=== PATIENT | male | born 1975 | race Caucasian/White ===

== ENCOUNTER 2017-02-02 21:39 | Inpatient (IN) | payer BC ==
[2017-02-02 22:35] LABS: Hematocrit 45 % (42-52); Hemoglobin 15.9 g/dl (14.0-18.0); Mean Corpuscular HGB Conc 35 g/dl (31-36); Mean Corpuscular Hemoglobin 35 pg (27-31); Mean Corpuscular Volume 101 fL (80-94); Mean Platelet Volume 8 um3 (7.4-10.4); Red Blood Count 4.51 10^6/ul (4.0-5.4); Red Cell Distribution Width 13 % (10.5-15); White Blood Count 10.2 10^3/ul (3.5-10.8)
[2017-02-02 22:52] LABS: ALT 23 U/L (7-52); AST 19 U/L (13-39); Albumin 4.4 g/dL (3.2-5.2); Alkaline Phosphatase 74 U/L (34-104); Anion Gap 10 mmol/L (2-11); BUN/Creatinine Ratio 6.3 (8-20); Blood Urea Nitrogen 4 mg/dL (6-24); CO2 Carbon Dioxide 23 mmol/L (22-32); Calcium 9.3 mg/dL (8.6-10.3); Chloride 103 mmol/L (101-111); EGFR African American 179.1 (>60); EGFR Non-African American 139.2 (>60); Globulin 2.4 g/dL (2-4); Glucose 103 mg/dL (70-100); Potassium 3.7 mmol/L (3.5-5.0); Sodium 136 mmol/L (133-145); Total Protein 6.8 g/dL (6.4-8.9)
[2017-02-02 23:10] LABS: Acetaminophen < 15 mcg/mL; Alcohol 314 mg/dL (<10); Salicylate < 2.50 mg/dL (<30)
[2017-02-02 23:18] LABS: Urine Bilirubin Negative (Negative); Urine Glucose Negative (Negative); Urine Nitrite Negative (Negative)
[2017-02-02 23:21] LABS: TSH (Thyroid Stimulating Horm) 2.56 mcIU/mL (0.34-5.60)
--- NOTE | 2017-02-02 23:30 | ED ---
Thanh Kirkpatrick Matthew, scribed for Suraj Whitlock MD on 02/02/17 at 2330 . Psychiatric Complaint - HPI Summary HPI Summary: A 41 y/o male presents to the ED after a suicide attempt. The patient states that he attached a garden hose to the muffler of the his car and ran the hose into his car. He states that he wanted to take his life and he wishes his dad would not have found him. - History Of Current Complaint Chief Complaint: [facility]ental[facility] Time Seen by Provider: 02/02/17 22:25 Hx Obtained From: Patient Onset/Duration: Still Present Timing: Constant Severity Initially: Moderate Severity Currently: Moderate Character: Depressed Has Suicidal: Reports: Thoughts, With A Plan - Allergies/Home Medications Allergies/Adverse Reactions: Allergies Allergy/AdvReac Type Severity Reaction Status Date / Time No Known Allergies Allergy Verified 02/02/17 22:21 PMH/Surg Hx/FS Hx/Imm Hx Psychiatric History: Reports: Hx Suicide Attempt Infectious Disease History: No Infectious Disease History: Denies: Traveled Outside the [place] in Last 30 Days Review of Systems Constitutional: Negative Eyes: Negative ENT: Negative Cardiovascular: Negative Respiratory: Negative Gastrointestinal: Negative Genitourinary: Negative Musculoskeletal: Negative Skin: Negative Neurological: Negative Psychological: Other - Suicide attempt All Other Systems Reviewed And Are Negative: Yes Physical Exam Triage Information Reviewed: Yes Vital Signs On Initial Exam: Initial Vitals Temp Pulse Resp BP Pulse Ox 97.6 F 94 20 151/81 97 02/02/17 21:43 02/02/17 21:43 02/02/17 21:43 02/02/17 21:43 02/02/17 21:43 Vital Signs Reviewed: Yes Appearance: Positive: Well-Appearing, No Pain Distress Skin: Positive: Warm Head/Face: Positive: Normal Head/Face Inspection Eyes: Positive: JOHN ENT: Positive: Hearing grossly normal Neck: Positive: Supple Respiratory/Lung Sounds: Positive: Clear to Auscultation, Breath Sounds Present Cardiovascular: Positive: RRR Abdomen Description: Positive: Nontender, Soft Bowel Sounds: Positive: Present Musculoskeletal: Positive: Strength/ROM Intact Diagnostics - Vital Signs Vital Signs Temp Pulse Resp BP Pulse Ox 02/02/17 22:20 99.0 F 93 20 134/93 100 02/02/17 21:43 97.6 F 94 20 151/81 97 - Laboratory Lab Results: Lab Results 02/02/17 02/02/17 02/02/17 Range/Units 22:25 22:25 22:25 WBC 10.2 (3.5-10.8) 10^3/ul RBC 4.51 (4.0-5.4) 10^6/ul Hgb 15.9 (14.0-18.0) g/dl Hct 45 (42-52) % MCV 101 H (80-94) fL MCH 35 H (27-31) pg MCHC 35 (31-36) g/dl RDW 13 (10.5-15) % Plt Count 260 (150-450) 10^3/ul MPV 8 (7.4-10.4) um3 Neut % (Auto) 63.8 (38-83) % Lymph % (Auto) 26.9 (25-47) % [place] % (Auto) 6.5 (1-9) % Eos % (Auto) 2.4 (0-6) % Baso % (Auto) 0.4 (0-2) % Absolute Neuts (auto) 6.5 (1.5-7.7) 10^3/ul Absolute Lymphs (auto) 2.7 (1.0-4.8) 10^3/ul Absolute Monos (auto) 0.7 (0-0.8) 10^3/ul Absolute Eos (auto) 0.2 (0-0.6) 10^3/ul Absolute Basos (auto) 0 (0-0.2) 10^3/ul Absolute Nucleated RBC 0 10^3/ul Nucleated RBC % 0 Carbon Monoxide Screen 13.0 H (<3.5) % Sodium 136 (133-145) mmol/L Potassium 3.7 (3.5-5.0) mmol/L Chloride 103 (101-111) mmol/L Carbon Dioxide 23 (22-32) mmol/L Anion Gap 10 (2-11) mmol/L BUN 4 L (6-24) mg/dL Creatinine 0.64 L (0.67-1.17) mg/dL Est GFR ( Amer) 179.1 (>60) Est GFR (Non-Af Amer) 139.2 (>60) BUN/Creatinine Ratio 6.3 L (8-20) Glucose 103 H (70-100) mg/dL Calcium 9.3 (8.6-10.3) mg/dL Total Bilirubin 0.90 (0.2-1.0) mg/dL AST 19 (13-39) U/L ALT 23 (7-52) U/L Alkaline Phosphatase 74 (34-104) U/L Total Protein 6.8 (6.4-8.9) g/dL Albumin 4.4 (3.2-5.2) g/dL Globulin 2.4 (2-4) g/dL Albumin/Globulin Ratio 1.8 (1-3) TSH 2.56 (0.34-5.60) mcIU/mL Urine Color Urine Appearance Urine pH (5-9) Ur Specific [place] (1.010-1.030) Urine Protein (Negative) Urine Ketones (Negative) Urine Blood (Negative) Urine Nitrate (Negative) Urine Bilirubin (Negative) Urine Urobilinogen (Negative) Ur Leukocyte Esterase (Negative) Urine Glucose (Negative) Salicylates < 2.50 (<30) mg/dL Acetaminophen < 15 mcg/mL Serum Alcohol 314 H (<10) mg/dL 02/02/ Range/Units 23:05 WBC (3.5-10.8) 10^3/ul RBC (4.0-5.4) 10^6/ul Hgb (14.0-18.0) g/dl Hct (42-52) % MCV (80-94) fL MCH (27-31) pg MCHC (31-36) g/dl RDW (10.5-15) % Plt Count (150-450) 10^3/ul MPV (7.4-10.4) um3 Neut % (Auto) (38-83) % Lymph % (Auto) (25-47) % [place] % (Auto) (1-9) % Eos % (Auto) (0-6) % Baso % (Auto) (0-2) % Absolute Neuts (auto) (1.5-7.7) 10^3/ul Absolute Lymphs (auto) (1.0-4.8) 10^3/ul Absolute Monos (auto) (0-0.8) 10^3/ul Absolute Eos (auto) (0-0.6) 10^3/ul Absolute Basos (auto) (0-0.2) 10^3/ul Absolute Nucleated RBC 10^3/ul Nucleated RBC % Carbon Monoxide Screen (<3.5) % Sodium (133-145) mmol/L Potassium (3.5-5.0) mmol/L Chloride (101-111) mmol/L Carbon Dioxide (22-32) mmol/L Anion Gap (2-11) mmol/L BUN (6-24) mg/dL Creatinine (0.67-1.17) mg/dL Est GFR ( Amer) (>60) Est GFR (Non-Af Amer) (>60) BUN/Creatinine Ratio (8-20) Glucose (70-100) mg/dL Calcium (8.6-10.3) mg/dL Total Bilirubin (0.2-1.0) mg/dL AST (13-39) U/L ALT (7-52) U/L Alkaline Phosphatase (34-104) U/L Total Protein (6.4-8.9) g/dL Albumin (3.2-5.2) g/dL Globulin (2-4) g/dL Albumin/Globulin Ratio (1-3) TSH (0.34-5.60) mcIU/mL Urine Color Straw Urine Appearance Clear Urine pH 6.0 (5-9) Ur Specific [place] 1.001 L (1.010-1.030) Urine Protein Negative (Negative) Urine Ketones Negative (Negative) Urine Blood Negative (Negative) Urine Nitrate Negative (Negative) Urine Bilirubin Negative (Negative) Urine Urobilinogen Negative (Negative) Ur Leukocyte Esterase Negative (Negative) Urine Glucose Negative (Negative) Salicylates (<30) mg/dL Acetaminophen mcg/mL Serum Alcohol (<10) mg/dL Result Diagrams: 02/02/17 22:25 02/02/17 22:25 Lab Statement: Any lab studies that have been ordered have been reviewed, and results considered in the medical decision making process. Re-Evaluation - Re-Evaluation First Eval Change: Improved Course/Dx - Differential Dx/Clinical Impression Provider Diagnosis: Carbon monoxide poisoning, Suicide attempt by carbon monoxide poisoning - Physician Notifications Instructed by Provider To: Admit As Inpatient Discharge - Discharge Plan Condition: Fair Disposition: ADMITTED TO [facility] The documentation as recorded by the Thanh gross Matthew accurately reflects the service I personally performed and the decisions made by me, Suraj Whitlock MD.
[2017-02-02 23:32] LABS: Benzodiazepine Urine Screen None Detected (None Detect)
[2017-02-03] MEDS ORDERED: Ibuprofen TAB* 600 MG PO ONE (08:55)
[2017-02-03] MEDS ORDERED: Nicotine Inhaler* 10 MG AMP INH ONE (10:55)
[2017-02-03] MEDS ORDERED: Mouth Piece, Nicotine* 1 EACH CARTRIDGE ONE (11:44)
[2017-02-03] MEDS ORDERED: Al Hydrox/Mg Hydrox/Simet LIQ* 30 ML UDC PO PRN (13:58)
[2017-02-03] MEDS ORDERED: Acetaminophen TAB* 325 MG PO PRN (13:58)
[2017-02-03] MEDS ORDERED: hydrOXYzine HCL TAB* 50 MG PO PRN (13:59)
--- NOTE | 2017-02-03 16:58 | ED ---
Casimiro, Regla Flores, scribed for Raúl Elkins MD on 02/03/17 at 1510 . Progress - Progress Note Progress Note: 1508 Signed 9.39 paperwork (involuntary transfer). Pt will be admitted to Behavioral Health Unit with dx of depression and suicide attempt. - Consult/PCP Time Called: 07:26 Re-Evaluation - Re-Evaluation First Eval Change: Improved Course/Dx - Diagnoses Provider Diagnoses: Carbon monoxide poisoning, Suicide attempt by carbon monoxide poisoning, Depression - Provider Notifications Instructed by Provider To: Admit As Inpatient The documentation as recorded by the scribe, Regla Flores accurately reflects the service I personally performed and the decisions made by , Raúl Elkins MD.
[2017-02-04] MEDS: Vitamin THERAPEUTIC TAB PO SCH (07:57)
[2017-02-04] MEDS: Nicotine Inhaler* 10 MG AMP INH PRN ×3 (12:54→21:29)
--- NOTE | 2017-02-04 13:44 | HP ---
DATE OF ADMISSION: 02/03/2017. DATE OF EVALUATION: 02/04/2017. IDENTIFICATION: Mr. 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 He was brought in by police after his father found him unconscious after attempting to kill himself by carbon monoxide poisoning after drinking heavily to the point that he had a BAL over 300 in the ED. HISTORY OF PRESENT ILLNESS: Peter reports that he on Tuesday afternoon took a half-day off work, started to mow the yard, started drinking beer, and in distress over troubles at work and with child support, he decided to attempt to kill himself while intoxicated by putting a garden hose from the exhaust to the inside of a car. His father found him and got him into the hospital. He was medically cleared in the emergency department for carbon monoxide poisoning. Carbon monoxide had risen to a level that remained at 13 percent at the time of blood gas collected, 02/02/2017 at 2225 in the emergency department hours after the event, well past the normal range of less than 3.5 percent. He was given oxygen and otherwise treated for clearance of his carbon monoxide poisoning. He is currently showing no gross neurological deficits therefrom. 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 He reports that rather than feeling depressed, he is more "stressed," that he still enjoys everything he has always enjoyed, including fishing and hiking with his 9-year-old daughter. He reports no particular difficulties with sleep, energy, or appetite. He does report having lost some weight, only because he is more active. He denies any difficulties with concentration, decision making, or his thought process. He reports feeling more hopeful than hopeless. He reports that he has never before this instance had thoughts of suicide, much less taken any sort of suicidal actions. He denies at this time having any ongoing suicidal ideation. He reports his principal stressor as some difficulties with child support and with demands by his work to train these young people. He denies ever any history of manic symptoms, denies any incidents of specific symptoms of racing thoughts, talking fast, not needing sleep, and so on. He reports that his anxiety at work can sometimes rise to a level rated about 5/10 when he is called upon to do this training with the young new employees, but otherwise reports no particular difficulties with anxiety. He denies any history of panic attacks. He denies any history of trauma or PTSD symptoms. He denies any history of OCD symptoms or psychotic symptoms. MENTAL STATUS EXAMINATION: He reports his mood currently as "fantastic." He has calm and somewhat chagrined-looking affect when thinking about what brought him here. He denies any auditory or visual hallucinations or paranoid ideation. He denies any suicidal or homicidal ideation. He is alert and oriented by three, and has a linear and goal-directed thought process. He has good grooming and hygiene. He shows no motor abnormalities. He shows no gross deficits of memory, cognition or attention. His insight and judgment are rising to the level of fair at this point from very poor when he was initially seen in the emergency department, but while he was still intoxicated there. He is reporting feeling embarrassed at what he did and understanding of the need for us to complete a psych assessment following a suicide attempt by a method with high potential lethality before planning for his discharge which could possibly happen on Tuesday. He has intact impulse control at this point, but while inebriated did not. PAST PSYCHIATRIC HISTORY: He denies any history of inpatient or outpatient psychiatric care, prior psychiatric diagnoses, prior med trials, or prior suicidality or self-injurious behaviors. PAST MEDICAL HISTORY: Denies any. Denies specifically any traumatic brain injury, seizures, syncopal episodes or cardiac problems. PAST SURGICAL HISTORY: Denies any. MEDICATIONS ON ADMISSION: List was reported as unobtainable in the emergency department. He tells me that he takes no medications aside from an occasional ibuprofen. FAMILY PSYCHIATRIC HISTORY: Denies any. SUBSTANCE ABUSE HISTORY: He reports drinking about four to six drinks daily when he is not parenting his daughter at his home, which occurs Fridays and Tuesday nights most weeks. He denies any history of abuse of illicit substances, much less any IV drug use, inhalant abuse, [id number] abuse. He denies any prescription medication abuse. He reports he drinks about three cups per day of coffee. He is a one pack per day smoking and he is contemplating quitting. SOCIAL HISTORY: Reports having grown up with one brother in [place], [place]. He reports that his mother took care of many kids in the neighborhood and it was a busy household. He denies any history of abuse of any sort growing up. He reports having done well in school. He reports that did not attend college, though he could have. He did not serve in the . He has never been , but he has one daughter. He has been employed 20 years with the same company. He denies any history of suicide attempts or completed suicides amongst his relatives. LEGAL HISTORY: Denies any aside from a temporary restraining order at one point that grew out of his daughter reporting some things he had said during a verbal argument with his . He reports that that was in place for about a month. He denies any history of agitation, aggression or violence. PHYSICAL EXAMINATION This was documented in the emergency department across all organ systems as within normal limits. He denies on my ROS any chest pain, shortness of breath, nausea, vomiting, constipation, diarrhea, pain, ringing in the ears, or dizziness. He denies any other symptoms I did not ask about. He declines a repeat physical examination. Given a normal physical examination in the emergency department and a negative review of symptoms, this is a reasonable request that I will honor. VITAL SIGNS: Last recorded today at 7:41 a.m., temperature 98.3, pulse 59, respiratory rate 16, saturating 100 percent on room air with a blood pressure mildly elevated at 145/86. Previous reading of blood pressure at 11:36 a.m. on was 146/92 and at 7:30 a.m. on was 110/65. LABORATORY VALUES: As noted above, blood gas reading was 13 percent carbon monoxide at 2225 on 02/02/2017. CBC with differential found elevated MCV to 101 with a correspondingly high MCH of 35. No other abnormalities in the CBC with differential. Comprehensive metabolic panel found a slightly low creatinine level to 0.64 and a slightly high glucose level to 103, otherwise within normal limits with a normal TSH of 2.56. Urinalysis had low specific gravity of 1.001, but was otherwise entirely negative and in the normal range across all variables. Toxicology screen found no substances in serum or urine aside from the serum alcohol of 314 at 2225 on 02/02/2017. ASSESSMENT: Peter Ibarra is a 41-year-old man who tried to kill himself by carbon monoxide poisoning while under the influence of alcohol. He reports that the stressors of training responsibilities at work and of limited custody of his daughter contributed to his drinking and the suicidal ideation that occurred when he was inebriated. He reports that he has a friend, Machelle, who works at the [employer] who states that she will help him with the drinking problems. He is at this point precontemplative about taking a more structured path against his drinking. He denies any history of symptoms of depression, reporting only stress related temporary mood disturbance. He denies all other active psychiatric symptoms. He merits continued observation through the weekend after this potentially lethal suicide attempt. If he appears stable through the weekend, he may be ready for discharge come Tuesday, assuming that observations are consistent with resolution of the suicidal ideation and adequate aftercare can be put together for him. He is encouraged to make use of the therapeutic milieu and groups. He denies active psychiatric symptoms against which to target medications. I have reviewed with him Antabuse and Revia and he has declined these for maintenance of abstinence from alcohol. DIAGNOSES: (Alcohol exacerbated) adjustment disorder with disturbance of mood; rule out masked depression; alcohol use disorder, moderate to severe; rule out personality disorder. [id number]/CPS #: [id number] JULIETH
--- NOTE | 2017-02-04 14:55 | PN ---
[facility]: Group Therapy Note - Service Type Service Type: 78104 Group Psychotherapy - Cognitive Behavioral Group Therapy ( CBT):Patient was attentive and participatory in CBT programming this morning, and remained in good behavioral control. Patient expressed positive insights regarding relevant treatment interventions and goals.
[2017-02-05] MEDS: Nicotine Inhaler* 10 MG AMP INH PRN ×3 (08:58→19:09)
[2017-02-05] MEDS: Vitamin THERAPEUTIC TAB PO SCH (10:08)
--- NOTE | 2017-02-05 15:55 | PN ---
Subjective - Subjective Subjective: Today I had the opportunity to meet with Mr. Garber. He reports improvement in his mood and indicated that "my problems are nothing compared to some of these people." We discussed the difficulties in his interpersonal relationships that led to his suicide attempt. Today, Peter indicated that he the attempt was staged and that he was "pretty sure" that nothing would happen to him. Mr. Garber shared the contents of his journal with me, he wanted me to see that he had outlined a list of "negative" things in his life as well as a list of positive things he has going for him. He acknowledged that his "positive" list was significantly larger than his list of "negative" things. He is hoping that his lady friend Machelle will visit him tonight. Reports good sleep and appetite. Denies any new issues. Case was discussed with Dr. Gama. Objective - Appearance Dysmorphic Features: No Hygiene: Normal Grooming: Well Kept - Behavior Psychomotor Activities: Normal Exhibits Abnormal Movement: No - Attitude and Relatedness Attitude and Relatedness: Cooperative Eye Contact: Good - Speech Quality: Unpressured Latencies: Normal Quantity: Appropriate - Mood Patient's Decription of Mood: "Good" - Affect Observed Affect: Non-labile Affect Consistent with: Euthymia - Thought Process Patient's Thought Process: Coherent Thought Content: No Passive Wish - No evidence of same, No Suicidal Planning - Denies, No Homicidal Ideation - Denies, No Paranoid Ideation - None evident - Sensorium Experiencing Hallucinations: No, Sensorium is Clear Type of Hallucinations: Visual: No, Auditory: No, Command: No - Level of Consciousness Level of Consciousness: Alert Orientation: Yes Intact, Yes Orientated to Time, Yes Orientated to Place, Yes Orientated to Person - Impulse Control Impulse Control: Intact - Insight and Judgement Insight and Judgement: Fair - Group Participation Particating in Group Activities: Yes Assessment - Assessment Clinical Impression: Mr. Garber is a 41 year old white male who was admitted after a suicide attempt in which he attempted to asphyxiate himself with carbon dioxide in his vehicle. Today, Mr. Garber is alleging that the attempt was staged, and is hoping to return to the community on Tuesday. Plan - Plan Treatment Plan: Name: PETER GARBER Birthdate: 1975 [id number] Medications: Current Medications Acetaminophen (Tylenol Tab*) 650 mg PO Q4H PRN PRN Reason: for pain; or Temp >101 F Al Hydrox/Mg Hydrox/Simethicone (Maalox Plus*) 30 ml PO Q4H PRN PRN Reason: INDIGESTION Hydroxyzine HCl (Atarax Tab*) 50 mg PO Q6H PRN PRN Reason: AGITATION/ANXIETY/INSOMNIA Multivitamins (Theragran Tab*) 1 tab PO DAILY EVGENY Last Admin: 02/05/17 10:08 Dose: Not Given Nicotine (Nicotine Inhaler*) 10 mg INH Q2H PRN PRN Reason: CRAVING Last Admin: 02/05/17 14:27 Dose: 10 mg
[2017-02-06] MEDS: Nicotine Inhaler* 10 MG AMP INH PRN ×6 (05:30→22:07)
[2017-02-06] MEDS: Vitamin THERAPEUTIC TAB PO SCH (09:46)
[2017-02-07] MEDS: Nicotine Inhaler* 10 MG AMP INH PRN ×3 (07:00→12:04)
[2017-02-07 07:32] VITALS: BP 148/80
[2017-02-07] MEDS: Vitamin THERAPEUTIC TAB PO SCH (09:03)
--- NOTE | 2017-02-07 11:18 | DS ---
Subjective - Subjective Service Types: [address] [facility] Day Mgmt simple under 30 min Discharge Date: 02/07/17 Subjective: Peter reports that he is embarrassed at having made what he is now describing as more "trying to get people to listen" than an earnest suicide attempt. 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 He reports feeling safe and ready for discharge. He denies any physical problems. Objective - Appearance Appearance: Healthy Appearing Dysmorphic Features: No Hygiene: Normal Grooming: Well Kept - Behavior Psychomotor Activities: Normal Exhibits Abnormal Movement: No - Attitude and Relatedness Attitude and Relatedness: Well Related Eye Contact: Good - Speech Quality: Unpressured Latencies: Normal Quantity: Appropriate - Mood Patient's Decription of Mood: "Good" - Affect Observed Affect: Fair Affect Consistent with: Euthymia - with some chagrin expressed about suicide attempt - Thought Process Patient's Thought Process: Coherent, Goal Directed Thought Content: No Passive Wish, No Suicidal Planning, No Homicidal Ideation, No Paranoid Ideation - Sensorium Experiencing Hallucinations: No, Sensorium is Clear Type of Hallucinations: Visual: No, Auditory: No, Command: No - Level of Consciousness Level of Consciousness: Alert Orientation: Yes Intact, Yes Orientated to Time, Yes Orientated to Place, Yes Orientated to Person - Impulse Control Impulse Control: Intact - Insight and Judgement Insight and Judgement: Fair - Group Participation Particating in Group Activities: Yes - Medication Management Medication Management Adherence: Yes Treatment Course & Assessment Clinical Course & Impression: Peter Ibarra is a 41-year-old man who tried to kill himself by carbon monoxide poisoning while under the influence of alcohol. He reports that the stressors of training responsibilities at work and of limited custody of his daughter contributed to his drinking and the suicidal ideation that occurred when he was inebriated. He reports that he has a friend, Machelle, who works at the [employer] who states that she will help him with the drinking problem. He is at this point precontemplative about taking a more structured path against his drinking. He denies any history of symptoms of depression, reporting only stress related temporary mood disturbance. He denies all other active psychiatric symptoms. He merits continued observation through the weekend after this potentially lethal suicide attempt. If he appears stable through the weekend, be ready for discharge come Tuesday, assuming that observations are consistent with resolution of the suicidal ideation and adequate aftercare can be put together for him. He is encouraged to make use of the therapeutic milieu and groups. He denies active psychiatric symptoms against which to target medications. I have reviewed with him Antabuse and Revia and he has declined these for maintenance of abstinence from alcohol. 5 Peter Ibarra is cleared for discharge. He reports sustained remission of suicidal thoughts. He reports good mood. His mother and father also report that they feel their son is his usual self per their phone conversations with him over the weekend, and that he is safe to discharge. They reported they had seen no signs nor heard any reports of suicidal thoughts preceding the attempt, nor any mood changes. They agree with the sources of stress he has reported. They report that their son has no psychiatric history. They are strongly supportive of his discharge today. He is bright and future-oriented. He reports feeling chagrined at having tried to get people to listen with a 'staged ' suicide attempt, but he is glad he failed as he planned to, and he is glad he has gotten the attention of family and friends, who have told him they will be providing him more emotional support. He made responsible use of the milieu and groups. He has been pleasant and collaborative with all on the unit. He continues to have unmodifiable risk factors for suicide, as a middle aged single male. He can modify the factors of alcohol use and stress at work and with custody issues. He voices a commitment to addressing these factors. If he does, he has a good prognosis. Merits Inpatient Hospitalization: No Clear for Discharge: Adequate Clinical Respons, Acceptable Safety Profile, Low Utility of Inpt Care Inpatient DSM-IV Dx: Adjustment disorder with disturbance of mood, exacerbated by. 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 limitation to custody of his 9 year-old daughter. Family: Supportive parents and brother Primary Support Group: Girlfriend Machelle, parents Himanshu and Linda - Shannon V [id number]: 72 Estimate of Highest-Past Year: 75 Discharge Planning - Discharge Planning Discharge Plan: Outpatient Follow Up Outpatient Program: [facility] Recommendations for Continuing Care: Psychotherapy, Substance Abuse Counseling Medications: Peter requests only nicotine replacement to stop smoking, with 21 mg/24 hr patches. He has denied sufficient history of depressive symptoms to merit trial of an antidepressant medication, which he agrees with not starting at this time, but will raise with providers at [facility] if he feels he may need medication for his mood. He declined a trial of Campral, ReVia, or Antabuse against alcohol use. He agrees to [facility] f/u, and says his friend May will be helping him stay sober. Discharge Planning: Prescriptions provided for discharge [x] Yes [] No Follow up care details as per social work arrangements. Patient response to discharge plan: [x] eager for discharge [x] agreeable with discharge plan [] ambivalent about discharge [] disagrees with discharge today
== END 2017-02-07 13:00 | disposition home or self-care (01) | DRG 755 ==
LOC: ED 21:39 → BSU 02-03 13:58
PROVIDERS: ADMIT Psychiatry & Neurology Psychiatry; ATTEND Psychiatry & Neurology Psychiatry
DX: F43.25 Adjustment disorder with mixed disturbance of emotions and conduct (principal); F10.10 Alcohol abuse, uncomplicated; Y90.8 Blood alcohol level of 240 mg/100 ml or more; F17.210 Nicotine dependence, cigarettes, uncomplicated; T65.892A Toxic effect of other specified substances, intentional self-harm, initial encounter; Y92.9 Unspecified place or not applicable; X58.XXXA Exposure to other specified factors, initial encounter
CPT/HCPCS: 36415; 80053; 80307; 80320; 80329; 81003; 82375; 84443; 85025; 90853; 99222; 99231; 99238; A9270-GY; G0480